=== PATIENT | female | born 1995 | race African-American/Black ===

== ENCOUNTER 2018-07-02 11:30 | Emergency (ER) | payer BC ==
[~2018-07-02] VITALS: Ht 167.6 cm; Wt 56.7 kg
[2018-07-02 11:36] VITALS: BP 116/73
[2018-07-02] MEDS ORDERED: IBUPROFEN 600600 M1 PO (11:51)
[2018-07-02] MEDS ORDERED: CYCLOBENZAPRINE5 MG PO (11:51)
== END 2018-07-02 12:21 | disposition home or self-care (01) ==
LOC: ER 11:30
DX: S16.1XXA Strain of muscle, fascia and tendon at neck level, initial encounter (principal); R10.13 Epigastric pain; F41.9 Anxiety disorder, unspecified; R68.84 Jaw pain; V89.2XXA Person injured in unspecified motor-vehicle accident, traffic, initial encounter; Y92.89 Other specified places as the place of occurrence of the external cause; Y93.89 Activity, other specified; Y99.8 Other external cause status